=== PATIENT | female | born 1980 | race Caucasian/White ===

== ENCOUNTER → 2016-09-16 | Outpatient (CLI) | payer OTHER ==
[~2016-09-16] MED LIST: IBUP-1277 PO; PRENTAB26 PO; ZNTT/150 PO
[2016-09-16 18:24] LABS: URINE APPEARANCE CLEAR (CLEAR); URINE BILIRUBIN NEG (NEG); URINE COLOR YELLOW; URINE EPITHELIAL CELL AUTO >30 /lpf (0-5); URINE NITRITE NEG (NEG); URINE PH 7.5 (4.5-7.5); URINE SPECIFIC GRAVITY 1.003 (1.000-1.030); UROBILINOGEN NEG (NEG)
[2016-09-16 18:35] LABS: MANUAL MICROSCOPIC REQUIRED? NO; REVIEW REQ? NO
[2016-09-21 17:35] LABS: HSV1 AB IGM Negative (Negative); HSV2 AB IGM Negative (Negative); TOXOPLASMA GONDII IGM Negative (Negative)
== END | disposition home or self-care (01) ==
LOC: C.LAB1850 16:57
PROVIDERS: ATTEND Obstetrics & Gynecology
DX: O09.213 Supervision of pregnancy with history of pre-term labor, third trimester (principal); O28.9 Unspecified abnormal findings on antenatal screening of mother

== ENCOUNTER → 2016-09-22 | Outpatient (CLI) | payer OTHER ==
[2016-09-22 09:58] LABS: HEMATOCRIT 32.1 % (37-47)
== END | disposition home or self-care (01) ==
LOC: C.LAB1850 07:06
PROVIDERS: ATTEND Obstetrics & Gynecology
DX: O09.213 Supervision of pregnancy with history of pre-term labor, third trimester (principal)

== ENCOUNTER → 2016-11-17 | Outpatient (CLI) | payer OTHER | END | disposition home or self-care (01) | LOC: C.LABSPEC 12:13 | PROVIDERS: ATTEND Obstetrics & Gynecology | DX: O09.213 Supervision of pregnancy with history of pre-term labor, third trimester (principal) ==

== ENCOUNTER 2016-11-24 10:37 | Inpatient (IN) | payer OTHER ==
[~2016-11-24] VITALS: Ht 154.9 cm; Wt 69.8 kg
[~2016-11-24 10:37] MED LIST changes: -PRENTAB26 PO; -ZNTT/150 PO
[2016-11-24] MEDS ORDERED: ZNTT/150 PO (11:19)
[2016-11-24] MEDS ORDERED: PRENTAB26 PO (11:19)
[2016-11-24 11:20] VITALS: Ht 154.9 cm; Wt 69.8 kg
[2016-11-24] MEDS ORDERED: LACTATED RINGER'S 1000ML 1,000 ML IV PRN (11:27)
[2016-11-24] MEDS ORDERED: LACTATED RINGER'S 1000ML 1,000 ML IV SCH (11:27)
[2016-11-24] MEDS ORDERED: FENTANYL CITRATE INJ 50 MCG/1 ML 2 ML VIAL ONE (11:42)
[2016-11-24] MEDS ORDERED: BUPIVACAINE 0.25% 30 ML VIAL ONE (11:42)
[2016-11-24] MEDS ORDERED: EpHEDrine SULFATE INJ 50 MG/ML AMP ONE (11:42)
[2016-11-24] MEDS ORDERED: FENTANYL 2MCG/ML ROPIV 1.25MG/ML 100ML BAG EPI ONE (11:43)
[2016-11-24 11:53] LABS: HEMATOCRIT 31.4 % (37-47); MEAN CELL VOLUME 84.6 fL (80-100); MEAN CORPUSCULAR HEMOGLOBIN 27.8 pg (25-34); MEAN CORPUSCULAR HGB CONC 32.8 g/dl (32-36); MEAN PLATELET VOLUME 10.5 fL (7.4-10.4); PLATELET COUNT 210 K/uL (130-400); RED BLOOD COUNT 3.71 M/uL (4.2-5.4); WHITE BLOOD COUNT 7.15 K/uL (4.8-10.8)
[2016-11-24] MEDS ORDERED: LACTATED RINGER'S 1000ML 500 ML IV PRN ×2 (12:13→12:53)
[2016-11-24] MEDS ORDERED: FENTANYL 2MCG/ML ROPIV 1.25MG/ML 100ML BAG EPI PRN (12:15)
[2016-11-24] MEDS ORDERED: NALBUPHINE HCL INJ 10 MG/ML AMP IV PRN (12:15)
[2016-11-24] MEDS ORDERED: DiphenhydrAMINE HCL 50 MG/ML VIAL IV PRN (12:15)
[2016-11-24] MEDS ORDERED: EpHEDrine SULFATE INJ 50 MG/ML AMP IV PRN (12:15)
[2016-11-24] MEDS ORDERED: ONDANSETRON INJ 2 MG/ML 2 ML VIAL IV PRN (12:15)
[2016-11-24] MEDS ORDERED: NALOXONE HCL INJ 0.4 MG/1 ML VIAL/CARP IV PRN (12:15)
[2016-11-24] MEDS ORDERED: OXYTOCIN 30 UNITS/500ML NSS IV PRN ×2 (13:00→14:00)
[2016-11-24] MEDS ORDERED: BENZOCAINE 20% AER SPR 82.5 GM CAN EXT PRN (14:00)
[2016-11-24] MEDS ORDERED: ACETAMINOPHEN 325 MG TAB PO PRN (14:00)
[2016-11-24] MEDS ORDERED: HYDROCORTISONE ACETATE 25 MG SUPP PR PRN (14:00)
[2016-11-24] MEDS ORDERED: ACETAMINOPHEN/CODEINE 300/30MG TAB PO PRN ×2 (14:00)
[2016-11-24] MEDS ORDERED: DIPHTHERIA/TETANUS/PERTUSSIS 0.5 ML SYR/VIAL IM. ONE (14:00)
[2016-11-24] MEDS ORDERED: IBUPROFEN 600 MG TAB PO PRN (14:00)
[2016-11-24] MEDS ORDERED: SUPERCREAM 0.870 % 15GM JAR EXT PRN (14:00)
[2016-11-24] MEDS ORDERED: LANOLIN OINT EXT PRN ×2 (14:00)
--- NOTE | 2016-11-24 14:00 | Medical Student: [facility] ---
Medical Student Delivery Note Irma arrived at [facility] on 11/24/16 at 37-2 weeks gestation, GBS-, blood type A+. Normal spontaneous male baby delivered head in occiput anterior position. Mouth and nose suctioned with bulb and no nuchal cord was found. Delayed cord clamping was performed and cord blood obtained. Placenta delivered spontaneously. A small first-degree laceration of the vaginal wall in the midline was repaired and inclusion cyst was also found and removed. Estimated blood loss was 300cc. Mother and baby stable.
--- NOTE | 2016-11-24 14:49 | DELIVERY SUMMARY ---
DATE OF OPERATION: 11/24/2016 DATE OF DELIVERY: 11/24/2016. FINDINGS: Viable male with Apgars of 8 and 9. Baby delivered spontaneously over a midline first degree laceration. Cord blood samples obtained. Placenta delivered spontaneously. Laceration repaired with 4-0 Vicryl in routine fashion. Estimated blood loss 300 mL. LABOR NOTE: The patient is a 36-year-old 3, para 0-2-0-2, EDC of 13 December at 37+ weeks of gestational age who presented with the complaint of contractions. The patient was seen earlier today in the office and told she was 4 cm. The patient states contractions began after the examination. The patient has a history of 2 previous pre-term deliveries; she declined 17 progesterone with this . On anatomy ultrasound at 20 weeks gestational age the fetus was noted to have a left upper quadrant mass. The patient had a negative cystic fibrosis screen, negative TORCH titer and maternal medicine consult recommended routine care. The patient's blood type is A positive, antibody negative, rubella immune, hepatitis B negative. She had a negative panorama. She had a negative maternal serum AFP. She had an elevated 1-hour Glucola at 16 weeks with normal 2-hour glucose tolerance test at 16 and 28 weeks and a negative 3rd trimester beta strep culture. Upon admission the patient was 5 cm dilated, 90% efface, 0 station, tracing was category 2. The patient was uncomfortable, anesthesia was consulted, an epidural was placed. Following placement of the epidural she had artificial rupture of membranes for clear fluid. Contractions had spaced out after the epidural and Pitocin was initiated per induction protocol. Over the next hours she went to full dilatation, began her second stage. She pushed for approximately 5 minutes delivering the viable male infant with description as above. Cord was clamped and cut. Cord blood samples were obtained. Placenta was delivered spontaneously. Inspection of the perineum showed a midline first degree laceration which was repaired with 4-0 Vicryl. Estimated blood loss 300 mL. Sponge and needle count was correct. I attest to the content of the Intraoperative Record and any orders documented therein. Any exceptio ns are noted below.
--- NOTE | 2016-11-24 16:07 | Anesthesia Procedure Note ---
Anesthesia Epidural Removal Nt Date & Time November 24, 2016 at 16:08 Vital Signs Pain Intensity: 0.0 Notes Mental Status: alert / awake / arousable, participated in evaluation Nausea / Vomiting: adequately controlled Pain: adequately controlled Airway Patency, RR, SpO2: stable & adequate BP & HR: stable & adequate Hydration State: stable & adequate Neuraxial Anesthesia: was administered, sensory block is resolved Anesthetic Complications: no major complications apparent, pt satisfied with anesthetic care Epidural: removed without complications, with tip intact
[2016-11-24 17:49] VITALS: BP 124/82; PULSE 117; TEMP 37.6
[2016-11-24] MEDS: DOCUSATE SODIUM 100 MG CAP PO SCH (20:18)
[2016-11-24 20:50] VITALS: BP 115/74; PULSE 71; TEMP 36.8; O2SAT 97
[2016-11-25] VITALS: BP 111/75; PULSE 68; TEMP 36.9; O2SAT 98
[2016-11-25 04:20] VITALS: BP 112/72; PULSE 78; TEMP 36.7; O2SAT 98
[2016-11-25 06:28] LABS: HEMATOCRIT 29.5 % (37-47)
--- NOTE | 2016-11-25 07:07 | Medical Student: [facility] ---
Med Student [employer] Progress Nt Date of Service November 25, 2016. Subjective conversation w/ patient, physical exam, lab review Ambulation: ambulating normally Voiding: no voiding problems, no incontinence Passing Gas: No Diet Tolerance: Regular Diet Lochia: Moderate Feeding Type: Breast Feeding Pain: improves on meds Notes: Irma is a [id number] PPD#1, s/p NVD blood type: A+ rubella: immune GBS: neg Review of Systems Constitutional: No chills, No fever, No sweats Respiratory: No cough, No shortness of breath, No wheezing Cardiac: No chest pain, No palpitations Abdomen: No nausea, No pain, No vomiting Female : No dysuria, No urinary frequency Objective Vital Signs Date Time Temp Pulse Resp B/P Pulse Ox O2 Delivery O2 Flow Rate FiO2 11/25/16 04:20 36.7 78 16 112/72 98 Room Air 11/25/16 00:00 Room Air 11/25/16 00:00 36.9 68 18 111/75 98 Room Air 11/24/16 20:50 36.8 71 16 115/74 97 Room Air 11/24/16 17:50 Room Air 11/24/16 17:49 37.6 117 18 124/82 Room Air Physical Exam General Appearance: WELL-APPEARING, WD/WN, NO APPARENT DISTRESS Respiratory/Chest: lungs clear, normal breath sounds Cardiovascular: regular rate, rhythm, no gallop, no murmur Abdomen: non tender, soft Fundus: Firm, Relation to Umbilicus (2cm below) Extremities: no pedal edema, no calf tenderness Laboratory Results Last 24 Hours Test 11/24/16 11:45 11/25/16 05:55 White Blood Count 7.15 K/uL Red Blood Count 3.71 M/uL Hemoglobin 10.3 g/dL 9.8 g/dL Hematocrit 31.4 % 29.5 % Mean Corpuscular Volume 84.6 fL Mean Corpuscular Hemoglobin 27.8 pg Mean Corpuscular Hemoglobin Concent 32.8 g/dl RDW Standard Deviation 39.2 fL RDW Coefficient of Variation 12.7 % Platelet Count 210 K/uL Mean Platelet Volume 10.5 fL Assessment and Plan Post- Day Number: 1 Continue Routine Care: Pt is a [id number] PPD#1, s/p NVD doing well Want to continue routine care, encourage ambulation and breast feeding. Likely to discharge tomorrow.
--- NOTE | 2016-11-25 07:10 | Progress Note ---
Subjective November 25, 2016. Subjective conversation w/ patient, physical exam Voiding: no voiding problems, no incontinence Feeding Type: Breast Feeding Objective Vital Signs Date Time Temp Pulse Resp B/P Pulse Ox O2 Delivery O2 Flow Rate FiO2 11/25/16 04:20 36.7 78 16 112/72 98 Room Air 11/25/16 00:00 Room Air 11/25/16 00:00 36.9 68 18 111/75 98 Room Air 11/24/16 20:50 36.8 71 16 115/74 97 Room Air 11/24/16 17:50 Room Air 11/24/16 17:49 37.6 117 18 124/82 Room Air Physical Exam General Appearance: WELL-APPEARING, NO APPARENT DISTRESS Fundus: Firm, Non-Tender Extremities: no calf tenderness Laboratory Results Last 24 Hours Test 11/24/16 11:45 11/25/16 05:55 White Blood Count 7.15 K/uL Red Blood Count 3.71 M/uL Hemoglobin 10.3 g/dL 9.8 g/dL Hematocrit 31.4 % 29.5 % Mean Corpuscular Volume 84.6 fL Mean Corpuscular Hemoglobin 27.8 pg Mean Corpuscular Hemoglobin Concent 32.8 g/dl RDW Standard Deviation 39.2 fL RDW Coefficient of Variation 12.7 % Platelet Count 210 K/uL Mean Platelet Volume 10.5 fL Assessment and Plan Post- Day#: 1 Continue Routine Care: - doing well - desires d/c - instructions given - f/u in 6 weeks
--- NOTE | 2016-11-25 07:12 | Discharge Instructions ---
Discharge Instructions Date of Service November 25, 2016. Admission Reason for Admission: R/O Labor Discharge Discharge Diagnosis / Problem: same Discharge Goals Goal(s): Routine recovery after delivery Medications Continue Dispensed Medications: supercream, dermaplast Activity Recommendations Activity Limitations: as noted below . Instructions / Follow-Up Instructions / Follow-Up ACTIVITY RECOMMENDATIONS: * Gradual return to full activity over the next 2-3 weeks. * No lifting - nothing heavier than baby over the next 2-3 weeks. * Do not engage in vigorous exercise, sexual activity or sports until cleared by your physician. * Do not drive or operate any motorized equipment until cleared by your physician. * You may shower/bathe daily. MEDICATIONS: For discomfort or pain, you may use Acetaminophen (Tylenol), Ibuprofen (Advil), or Naproxen (Aleve) following the package directions. For constipation you may use Colace following the package directions. BREAST CARE: If you are not breast feeding: * Wear a supportive bra 24 hours a day for one to two weeks. * Avoid stimulating your breasts and nipples as much as possible during the first few weeks after delivery. * When taking a shower, have the warm water hit your back, not breasts. * When your breasts feel full, apply ice packs. Usually three to four times a day helps ease the discomfort. * Take a mild pain medication (Tylenol / Motrin) when you are uncomfortable. If breast feeding: * Use breast milk to lubricate nipples. Lansinoh cream may be used for sore nipples. You do not need to remove cream prior to breast feeding. If using a different brand of cream, check the label for directions regarding removal of cream prior to nursing. * Wear a supportive bra. * If having problems with breasts or breast feeding, call a application support consultant or your health care provider. EPISIOTOMY CARE: After delivery, if you have an episiotomy (stitches), the following steps will ease discomfort and aid healing. * For the first 24 hours after delivery, place ice packs next to your episiotomy to help reduce swelling. * After the first 24 hour-period, sitz baths, either portable or in the tub, are suggested. A shower with a shower arm sprayed over the episiotomy may be comforting. * Shavonne care should be done after each voiding and bowel movement. Squirt warm water from a plastic bottle over the perineum (region of the body between the anus and urinary opening) and pat dry. * Use Dermoplast to ease discomfort. Shake container. [place] directly over the episiotomy. Place a Tucks on a clean sanitary pad next to your episiotomy. SPECIAL CARE INSTRUCTIONS: When you are discharged from the hospital, it is important for you to follow the instructions listed below: * During the first week at home, you should be able to care for yourself and your baby. In addition, the usual light household activities are encouraged. * Limit your activities to the way you feel. Do not try to clean the house or move furniture. Be sensible. * If you actively engage in sports and have done so up until the time of your delivery, you may resume these activities as soon as you feel able. This may take up to one month or even longer. Use good judgment. * Continue to take your vitamins for at least six weeks after the of your baby. * Your diet need not be limited unless you were on a special diet before your delivery. Breast-feeding mothers need around 2500 calories per day and at least 64-80 ounces of fluid per day (8 to 10 glasses). * You should eat foods from the four major food groups. Crash diets or fad diets are to be avoided. Eating lean meats, fresh fruits and vegetables, low-fat dairy products, high fiber foods and a regular exercise program, will help you get back to your pre- weight without putting your health at risk. * Constipation is sometimes a problem after delivery. Take a mild laxative as needed. If breast feeding, Milk of Magnesia is acceptable to use. You may use a suppository or Fleets enema if no episiotomy. * A daily shower or tub bath is suggested. Be sure to thoroughly and gently dry the perineum. * A bloody vaginal discharge will usually continue until around four weeks post . A small amount of bleeding may continue for as long as six weeks. Vaginal discharge changes from the bright red bleeding after delivery to pink then brownish and finally yellowish-pink before becoming white and disappearing. * Bleeding may increase with activity. Your first period may come in 4-8 weeks. If you are breast feeding, your period may be delayed even longer. * Hunker (sex) can begin whenever both you and your partner feel comfortable and do not have any form of genital infection. It is recommended that you wait at least six weeks for internal and external healing to occur. If you have questions, please talk to your health care practitioner. A condom should be used to prevent infection and . * Foreplay, gentle intercourse and lubrication is very important the first several times to prevent pain. A water-based lubricant such as K-Y jelly or Astroglide may be used. * If you have RH negative blood and your baby is RH positive, you will receive RHOGAM by injection prior to discharge. The nurse will give you a card to keep with you that has the date and place that you received RHOGAM after delivery. * During your care, you had a Rubella screen done to check for the presence of rubella antibodies in your blood. If your test was negative, you will receive a Rubella vaccine prior to discharge. This vaccine may cause a fever, soreness at the injection site and flu-like symptoms. If these symptoms persist, notify your health care practitioner. is not advised for one month after a Rubella vaccine. * Verbalizes understanding of car seat law as reviewed with patient nursing. * Car Seat hand-out given and reviewed with patient by nursing. * Shaken baby information reviewed with patient by nursing. Call you doctor if: * Heavy bleeding (saturating several pads an hour) or passing clots the size of your fist. * A fever >101 degrees F (38.3 degrees C) on two occasions four hours apart and /or chills. * Unusual pain in the pelvic or vaginal areas. * "Baby Blues" lasting longer than two weeks. If you have any questions or concerns, call your health care practitioner at . FOLLOW UP VISIT: * Please call the office at to schedule a 6 week examination. It is important you keep this appointment. It is important for you to make arrangements for either yearly or twice yearly check-ups thereafter. Current Hospital Diet Patient's current hospital diet: Regular OB Diet Discharge Diet Recommended Diet: Regular OB Diet Pending Studies Studies pending at discharge: no Medical Emergencies . Who to Call and When: Medical Emergencies: If at any time you feel your situation is an emergency, please call 911 immediately. . Non-Emergent Contact Non-Emergency issues call your: Anesthesia Assistant Call Non-Emergent contact if: you have a fever, temperature is above 100.5 . . "Provider Documentation" section prepared by Shay Beebe. . VTE Core Measure Inpt VTE Proph given/why not?: Treatment not indicated
[2016-11-25] MEDS: DOCUSATE SODIUM 100 MG CAP PO SCH (07:53)
[2016-11-25 08:00] VITALS: BP 110/79; PULSE 79; TEMP 36.6
[2016-11-25] MEDS ORDERED: FERROUS SULFATE 325 MG TAB PO SCH (08:00)
[2016-11-25] MEDS ORDERED: PRENATAL VITAMIN TAB PO SCH (08:00)
[2016-11-25 15:00] VITALS: BP 108/74; PULSE 88; TEMP 36.8; O2SAT 97
[2016-11-25 15:49] VITALS: BP_DIAS 74; PULSE 88; TEMP 36.8
[2016-11-25] MEDS ORDERED: BISACODYL 5 MG TABEC PO SCH (20:00)
== END 2016-11-25 16:40 | disposition home or self-care (01) | DRG 775 ==
LOC: C.OPB 10:37 → C.LD 10:37 → C.OPB 11:28 → C.LD 11:28 → C.OBG 17:22
PROVIDERS: ADMIT Obstetrics & Gynecology; ATTEND Obstetrics & Gynecology
PROC: 0HQ9XZZ Repair Perineum Skin, External Approach (ICD-10-PCS; principal; 2016-11-24)
PROC: 10E0XZZ Delivery of Products of Conception, External Approach (ICD-10-PCS; principal; 2016-11-24)
DX: O70.0 First degree perineal laceration during delivery (principal); Z3A.37 37 weeks gestation of pregnancy; Z37.0 Single live birth